=== PATIENT | male | born 1960 | race Caucasian/White ===

== ENCOUNTER 2016-07-14 07:05 | Day surgery (SDC) | payer BC ==
[2016-07-14] VITALS (8 sets, daily range): BP systolic 113–138; BP diastolic 66–87
[~2016-07-14] VITALS: Ht 170.2 cm; Wt 81.0 kg
[~2016-07-14 07:05] MED LIST: ALFENTANIL 500 MCG/ML (ALFENTA) 5 ML AMP IV ONE; MIDAZOLAM 2 MG/2 ML (VERSED) VIAL ONE; PROPOFOL 20 ML IV ONE
[2016-07-14] MEDS: SODIUM CHLORIDE FLUSH 3 ML SYR IV PRN (07:31)
[2016-07-14] MEDS: LACTATED RINGERS 1,000 ML IV SCH (07:31)
== END 2016-07-14 11:33 | disposition home or self-care (01) ==
LOC: ASC 07:05
PROVIDERS: ATTEND Surgery
PROC: 0DBP8ZX Excision of Rectum, Via Natural or Artificial Opening Endoscopic, Diagnostic (ICD-10-PCS; principal; 2016-07-14)
DX: Z12.11 Encounter for screening for malignant neoplasm of colon (principal); K62.1 Rectal polyp; I10 Essential (primary) hypertension